=== PATIENT | male | born 1980 | race African-American/Black ===

== ENCOUNTER 2018-12-29 12:06 | Day surgery (SDC) | payer OTHER ==
[~2018-12-29] VITALS: Ht 205.7 cm; Wt 113.4 kg
[2018-12-29] VITALS (10 sets, daily range): BP systolic 124–148; BP diastolic 76–90
--- NOTE | 2018-12-29 07:37 | Pre-Procedure Note/Attestation ---
Pre-Procedure Note/Attestation Complete Prior to Procedure Planned Procedure: left Procedure Narrative: shoulder arthrscopy, rc repair Indications for Procedure Pre-Operative Diagnosis: left shoulder rc tear Attestation I attest that I discussed the nature of the procedure; its benefits; risks and complications; and alternatives (and the risks and benefits of such alternatives ), prior to the procedure, with the patient (or the patient's legal communications representative). I attest that, if there was a reasonable possibility of needing a blood transfusion, the patient (or the patient's legal communications representative) was given the [facility] standardized written summary, pursuant to the Ivan Juan F Blood Safety Act ([place] Health and Safety Code # 1645, as amended). I attest that I re-evaluated the patient just prior to the surgery and that there has been no change in the patient's H&P, except as documented below: Montrell Cardona MD Dec 29, 2018 07:37
--- NOTE | 2018-12-29 07:38 | Operative Note - PDOC ---
Operative Note Operative Note Pre-op Diagnosis: left shoulder rc tear Procedure: see op report Post-op Diagnosis: same as pre-op plus Operative Findings: consistent w/pre-op dx studies Anesthesia: MAC Specimen: none Complications: none Condition: stable Estimated Blood Loss: none Drains: none Implant(s) used?: Yes Montrell Cardona MD Dec 29, 2018 07:38
[~2018-12-29 12:06] MED LIST: D5 1/2NS 1,000 ML IV SCH; HYDROcodone/Acetamin 5/325 tab ORAL PRN; HYDROmorphone 1mg/ml Carpuject SUBQ PRN; NKM; Tylenol #3 tab (300mg/30mg) ORAL PRN; ceFAZolin 1gm IVPB IVPB ONE; celeBREX 200mg Cap **SURGERY PATIENTS ONLY ORAL ONE; oxyCONTIN 20mg tab ORAL ONE
[2018-12-29] MEDS ORDERED: oxyCONTIN 20mg tab ORAL ONE (12:50)
[2018-12-29] MEDS ORDERED: celeBREX 200mg Cap **SURGERY PATIENTS ONLY ORAL ONE (12:50)
[2018-12-29] MEDS ORDERED: fentaNYL 100 mcg/2 mL ONE (13:08)
[2018-12-29] MEDS ORDERED: Midazolam 2mg/2ml Inj ONE (13:08)
[2018-12-29] MEDS ORDERED: Propofol 200mg/20ml IV ONE (13:13)
[2018-12-29] MEDS ORDERED: Ketorolac 30mg Inj ONE ×2 (13:13→13:48)
[2018-12-29] MEDS ORDERED: Lidocaine 1% MPF 10mg/ml 5ml ONE (13:13)
[2018-12-29] MEDS ORDERED: Ropivacaine 5mg/ml Vial 30ml INJ ONE (13:18)
[2018-12-29] MEDS ORDERED: EPINEPHrine 1mg/1ml Amp ONE (13:46)
[2018-12-29] MEDS ORDERED: Kenalog-40 1ml Vial ONE (13:47)
[2018-12-29] MEDS ORDERED: Bupivacaine w/Epi 0.5% 30ml Vial INJ ONE (13:47)
[2018-12-29] MEDS ORDERED: LR 1000ml 1,000 ML IVLG SCH (15:04)
--- NOTE | 2018-12-29 15:04 | Anethesia Preoperative Eval ---
Anesthesia Pre-op PMH/ROS General Date of Evaluation: Dec 29, 2018 Time of Evaluation: 14:25 Anesthesiologist: Zena ASA Score: ASA 2 Mallampati Score Class I : Soft palate, uvula, fauces, pillars visible Class II: Soft palate, uvula, fauces visible Class III: Soft palate, base of uvula visible Class IV: Only hard plate visible Mallampati Classification: Class II Surgeon: Brendan Diagnosis: L shoulder pain Surgical Procedure: L shoulder scope Anesthesia History: none Family History: no anesthesia problems Allergies: Coded Allergies: No Known Allergies (Unverified , 12/29/18) Medications: see eMAR Patient NPO?: Yes Past Medical History Cardiovascular: Denies: HTN, CAD, PA, valve dz, arrhythmia, other Pulmonary: Denies: asthma, COPD, FUENTES, other Gastrointestinal/Genitourinary: Reports: GERD - mild; Denies: CRI, ESRD, other Neurologic/Psychiatric: Denies: dementia, CVA, depression/anxiety, TIA, other Endocrine: Denies: DM, hypothyroidism, steroids, other HEENT: Denies: cataract (L), cataract (R), glaucoma, SOLOMON (L), SOLOMON (R), other Hematology/Immune: Denies: anemia, DVT, bleeding disorder, other Musculoskeletal/Integumentary: Denies: OA, RA, DJD, DDD, edema, other PMH Narrative: as above PSxH Narrative: appendectomy Anesthesia Pre-op Phys. Exam Physician Exam Last Vital Signs Date Time Temp Pulse Resp B/P (MAP) Pulse Ox O2 Delivery O2 Flow Rate FiO2 12/29/18 12:47 Room Air 12/29/18 12:46 97.6 60 18 125/77 99 Constitutional: NAD Neurologic: CN 2-12 intact Cardiovascular: RRR, no M/R/G Respiratory: CTA Gastrointestinal: S/NT/ND Airway Exam Mallampati Score: Class II MO: full Neck: flexible ROM: full Teeth: intact Dentures: no upper, no lower Anesthesia Pre-op A/P Labs see chart Studies Pre-op Studies: EKG - SR Risk Assessment & Plan Assessment: ASA 2 Plan: GA with LMA L brachial plexus block fr postop pain control Status Change Before Surgery: No Pre-Antibiotics Drug: Ancef 2gr Given Within 1 Hr of Incision: Yes Time Given: 14:46 Georges Freitas MD Dec 29, 2018 15:04
[2018-12-29] MEDS ORDERED: NS Irrig 4000ml IRRIG ONE ×2 (15:08→15:09)
[2018-12-29] MEDS ORDERED: DiphenhydrAMINE 50mg/ml Inj IVP PRN (15:15)
[2018-12-29] MEDS ORDERED: Meperidine 50mg/ml Inj(FOR RIGORS ONLY) IV PRN (15:15)
[2018-12-29] MEDS ORDERED: Ketorolac 30mg Inj IV PRN (15:15)
--- NOTE | 2018-12-29 15:44 | Immediate Post-Op Evaluation ---
Immediate Post-Op Evalulation Immediate Post-Op Evalulation Procedure: L shoulder arthroscopy subacromion decompression Date of Evaluation: Dec 29, 2018 Time of Evaluation: 15:43 IV Fluids: 800 Blood Products: none Estimated Blood Loss: mibn Urinary Output: none Blood Pressure Systolic: 146 Blood Pressure Diastolic: 78 Pulse Rate: 72 Respiratory Rate: 20 O2 Sat by Pulse Oximetry: 98 Temperature (Fahrenheit): 97.6 Pain Score (1-10): 1 Nausea: No Vomiting: No Complications none Patient Status: awake, patent, none Hydration Status: adequate Georges Freitas MD Dec 29, 2018 15:44
--- NOTE | 2018-12-29 17:07 | 48 Hour Post Anesthesia Eval ---
Post Anesthesia Evaluation Procedure: L shoulder arthroscopy subacromion decompression Date of Evaluation: Dec 29, 2018 Time of Evaluation: 17:06 Blood Pressure Systolic: 124 0: 76 Pulse Rate: 72 Respiratory Rate: 20 Temperature (Fahrenheit): 97.6 O2 Sat by Pulse Oximetry: 98 Airway: patent Nausea: No Vomiting: No Pain Intensity: 1 Cardiopulmonary Status: stable Mental Status/LOC: patient returned to baseline Follow-up Care/Observations: n/a Post-Anesthesia Complications: none Follow-up care needed: ready to discharge Georges Freitas MD Dec 29, 2018 17:07
--- NOTE | 2018-12-29 18:45 | Operative Note - Dictated ---
DATE OF OPERATION: 12/29/2018 PREOPERATIVE DIAGNOSES: 1. Left shoulder high-grade rotator cuff tear. 2. Impingement syndrome. POSTOPERATIVE DIAGNOSES: 1. Grade 2 to grade 3 chondral damage, glenoid. 2. Grade 1 SLAP tear. 3. Partial articular-sided rotator cuff tear. 4. Impingement/bursitis. PROCEDURES: 1. Left shoulder diagnostic arthroscopy and extensive intra-articular debridement. 2. Chondroplasty of glenoid. 3. Debridement of superior labral tear and articular sided rotator cuff tear. 4. Decompression bursectomy. SURGEON: Montrell Cardona M.D. ANESTHESIA: Interscalene with general. INDICATION FOR PROCEDURE: The patient is a pleasant gentleman, who has had progressive left shoulder pain. He had an MRI, which showed high-grade partial rotator cuff tear. He had continued symptoms despite conservative treatment. He elected to undergo left shoulder arthroscopy and possible rotator cuff repair. Risks, limitations, expectations, and complications of the procedure were discussed in detail. All questions addressed. DESCRIPTION OF PROCEDURE: After informed consent was obtained, the patient was brought to the operating room and placed under general anesthesia. Left shoulder was prepped and draped in a sterile manner. Time-out was performed. Camera was then placed in the glenohumeral joint. There is a considerable grade 2 to grade 3 chondral damage of the glenoid. There is some fraying along the anterior labrum extending superiorly. Biceps tendon was intact. Subscap was intact. The undersurface of the rotator cuff had partial articular rotator cuff tear. The shaver was then placed into the shoulder joint. Debridement of the labrum anteriorly and superiorly was performed. was then probed and noted to be intact. The undersurface of the articular-sided rotator cuff was debrided. Once this was done, attention was turned towards the chondral damage. In the areas where there were some chondral flaps were slowly debrided using chondroplasty technique. Once the flaps of cartilage were stabilized, the camera was then removed and placed in the subacromial space. There was hypertrophic bursal tissue. The undersurface of the acromion was identified. Acromioplasty was started from lateral to medial and completed from posterior to anterior. The bursectomy was completed posteriorly. Instruments were removed. Portal sites were closed with 3-0 Monocryl suture. Steri-Strips and a dressing were applied. ESTIMATED BLOOD LOSS: None. COMPLICATIONS: None. SPECIMENS: None. IMPLANTS: None. Montrell Cardona M.D. DR: ALYCIA JOB#: [id number] CC:
== END 2018-12-29 16:50 | disposition home or self-care (01) ==
LOC: SUR 12:06
DX: M25.812 Other specified joint disorders, left shoulder (principal); M75.112 Incomplete rotator cuff tear or rupture of left shoulder, not specified as traumatic; M75.42 Impingement syndrome of left shoulder; K21.9 Gastro-esophageal reflux disease without esophagitis; Z90.89 Acquired absence of other organs
CPT/HCPCS: 29823; J0171; J0690; J1885; J2250; J2704; J2795; J3010; J3301; 94003; 94150